=== PATIENT | male | born 1995 | race Caucasian/White ===

== ENCOUNTER 2019-07-07 21:11 | Emergency (ER) | payer OTHER ==
[~2019-07-07] VITALS: Ht 170.2 cm; Wt 77.3 kg
[2019-07-07 21:13] VITALS: BP 142/74; PULSE 113; TEMP 98.5
== END 2019-07-07 21:37 | disposition home or self-care (01) ==
LOC: COL.ER 21:11
DX: S61.211A Laceration without foreign body of left index finger without damage to nail, initial encounter (principal); X58.XXXA Exposure to other specified factors, initial encounter; Y92.59 Other trade areas as the place of occurrence of the external cause

== ENCOUNTER 2019-08-14 04:51 | Emergency (ER) | payer OTHER ==
[~2019-08-14] VITALS: Ht 167.6 cm; Wt 72.7 kg
[2019-08-14 04:57] VITALS: TEMP 98.6
[2019-08-14 07:03] VITALS: BP 115/81; PULSE 122
== END 2019-08-14 07:00 | disposition home or self-care (01) ==
LOC: COL.ER 04:51
DX: S91.011A Laceration without foreign body, right ankle, initial encounter (principal); W25.XXXA Contact with sharp glass, initial encounter; Y92.009 Unspecified place in unspecified non-institutional (private) residence as the place of occurrence of the external cause

== ENCOUNTER → 2019-08-20 | Outpatient (CLI) | payer OTHER ==
[2019-08-20 19:15] VITALS: BP 133/68; PULSE 105
== END ==
LOC: COL.ER 18:58
DX: Z48.02 Encounter for removal of sutures (principal)